=== PATIENT | female | born 1970 ===

== ENCOUNTER 2019-07-21 05:50 | Day surgery (SDC) | payer OTHER ==
[~2019-07-21 05:50] MED LIST: KETO10TA2 PO; TRAMADOL HCL-AP1 TAB PO
[2019-07-21] MEDS ORDERED: TYLENOL ARTHRI650 MG PO (09:01)
[2019-07-21] MEDS ORDERED: MIRALAX17 GM PO (09:01)
[2019-07-21] MEDS ORDERED: DICY20TA PO (09:01)
[2019-07-21] MEDS ORDERED: ULTRAM50 MG PO (09:01)
== END 2019-07-21 13:45 | disposition home or self-care (01) ==
LOC: CIR.AMB 05:50
DX: K81.1 Chronic cholecystitis (principal)